=== PATIENT | male | born 1935 | race Caucasian/White ===

== ENCOUNTER → 2017-02-17 | Outpatient (CLI) | payer OTHER ==
[~2017-02-17] VITALS: Ht 172.7 cm; Wt 82.1 kg
[~2017-02-17] MED LIST: ATIVAN0.5 MG PO; ERGOCALCIF50000 UNIT PO; PERCOCET 10/1 TABLET PO; SYMBICORT60 INHALA1 IH; VENTOLIN HFA18 GM IH; VITAMIN B12 PO
[2017-02-17 07:59] LABS: HEMATOCRIT 39.8 % (38.0-50.0); MCHC 32.2 G/DL (30.0-36.0); MCV 93.2 FL (86-99); PLATELET COUNT 187 K/uL (156-360); RBC DIS.WIDTH-CV 13.5 % (11.8-14.6); RBC DIS.WIDTH-SD 45.8 % (39-53); RED BLOOD COUNT 4.27 M/uL (4.00-5.50); WHITE BLOOD COUNT 6.3 K/uL (4.1-10.2)
[2017-02-17 10:49] LABS: TYPE OF FLUID PLEURAL
[2017-02-17 11:19] LABS: BODY FLUID LDH 189 IU/L; BODY FLUID PROTEIN 3.8 G/DL
[2017-02-17 12:12] LABS: BODY FLUID EOSINOPHILS 2 % (0-25); BODY FLUID RBC'S 85000 /MM^3 (0-100); BODY FLUID WBC'S 483 /MM^3 (0-500); MONONUCLEAR WBC'S 75 %; POLYNUCLEAR WBC'S 23 % (0-25)
[2017-02-17 12:16] LABS: COMMENT SMEAR COMPATIBLE
== END | disposition home or self-care (01) ==
LOC: OPR 07:05 → EDSTATUS 08:00 → OPR 02-18 08:00
PROVIDERS: Internal Medicine Hematology & Oncology
DX: R91.8 Other nonspecific abnormal finding of lung field (principal); J90 Pleural effusion, not elsewhere classified; J84.10 Pulmonary fibrosis, unspecified; C44.399 Other specified malignant neoplasm of skin of other parts of face; C85.83 Other specified types of non-Hodgkin lymphoma, intra-abdominal lymph nodes; F41.9 Anxiety disorder, unspecified; F32.9 Major depressive disorder, single episode, unspecified; M54.9 Dorsalgia, unspecified; Z79.891 Long term (current) use of opiate analgesic; N18.4 Chronic kidney disease, stage 4 (severe)
CPT/HCPCS: 71010; 77012; 83615 91; 84157; 85027; 88108; 88305; 89051; J3010

== ENCOUNTER 2017-04-11 10:30 | Emergency (ER) | payer OTHER ==
[~2017-04-11] VITALS: Ht 175.3 cm; Wt 78.4 kg
[2017-04-11 13:50] VITALS: BP 123/66
== END 2017-04-11 14:42 | disposition home or self-care (01) ==
LOC: EME 10:30
DX: T40.2X1A Poisoning by other opioids, accidental (unintentional), initial encounter (principal); G89.29 Other chronic pain; Z79.891 Long term (current) use of opiate analgesic; C85.90 Non-Hodgkin lymphoma, unspecified, unspecified site; I10 Essential (primary) hypertension; J44.9 Chronic obstructive pulmonary disease, unspecified; Z92.21 Personal history of antineoplastic chemotherapy; Z92.3 Personal history of irradiation
CPT/HCPCS: 71010; 93005; 99281; 99285; J2270; J2310